=== PATIENT | female | born 1945 | race Caucasian/White ===

== ENCOUNTER → 2017-04-29 | Outpatient (CLI) | payer MEDICARE, OTHER | END | disposition home or self-care (01) | LOC: CDC 14:07 | DX: Z01.810 Encounter for preprocedural cardiovascular examination (principal) | CPT/HCPCS: 93000 ==

== ENCOUNTER 2017-05-08 07:54 | Day surgery (SDC) | payer OTHER ==
[~2017-05-08] VITALS: Ht 161.3 cm; Wt 57.1 kg
[~2017-05-08 07:54] MED LIST: AZELASTINE205.5 MCG/ BOTH NARES; MULTIPLE VITAM1 EAC1 PO; PRESERVISION A1 EAC2 PO; SALINE NOSE SPR45 M1 BOTH NARES; THERA TEARS30 ML BOTH EYES; VIACTIV SOFT C1 EACH PO; VITAMIN B-6100 MG PO
[2017-05-08 08:31] VITALS: BP 154/86
[2017-05-08 12:13] VITALS: BP 155/70
[2017-05-08 13:20] VITALS: BP 145/70
== END 2017-05-08 13:30 | disposition home or self-care (01) ==
LOC: SDC 07:54
PROC: 0UDB8ZX Extraction of Endometrium, Via Natural or Artificial Opening Endoscopic, Diagnostic (ICD-10-PCS; principal; 2017-05-08)
DX: N95.0 Postmenopausal bleeding (principal); N88.2 Stricture and stenosis of cervix uteri; R93.8 Abnormal findings on diagnostic imaging of other specified body structures; G62.9 Polyneuropathy, unspecified; Z87.891 Personal history of nicotine dependence; Z80.3 Family history of malignant neoplasm of breast
CPT/HCPCS: 88305; J0690; J1100; J1885; J2250; J2405; J3010